=== PATIENT | female | born 2000 | race Caucasian/White ===

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

== ENCOUNTER 2018-04-15 22:27 | Emergency (ER) | payer OTHER | END 2018-04-16 01:29 | disposition home or self-care (01) | LOC: FTE 22:27 | DX: J06.9 Acute upper respiratory infection, unspecified (principal); J45.909 Unspecified asthma, uncomplicated; R40.2412 Glasgow coma scale score 13-15, at arrival to emergency department | CPT/HCPCS: 99283; Z7502 ==

== ENCOUNTER 2018-09-14 23:18 | Emergency (ER) | payer OTHER ==
[2018-09-15] MEDS: KETOROLAC 30 MG INJ IM (02:48)
[2018-09-15 03:12] LABS: ADD UMIC YES; UR ASCORBIC ACID NEGATIVE (NEGATIVE); UR BACTERIA FEW /HPF (NONE SEEN); UR BILIRUBIN (Dip) NEGATIVE (NEGATIVE); UR BLOOD (Dip) NEGATIVE (NEGATIVE); UR CLARITY SLIGHTLY CLOUDY (CLEAR); UR COLOR YELLOW (YELLOW); UR GLUCOSE (Dip) NEGATIVE (NEGATIVE); UR KETONES (Dip) NEGATIVE (NEGATIVE); UR LEUKOCYTE ESTERASE (Dip) 1+ Leu/ul (NEGATIVE); UR MUCUS FEW /HPF (NONE SEEN); UR NITRITE (Dip) NEGATIVE (NEGATIVE); UR RBC 2 /HPF (0-5); UR SPECIFIC GRAVITY (Dip) 1.031 (1.003-1.030); UR SQUAMOUS EPITHELIAL CELL FEW /HPF (FEW); UR TOTAL PROTEIN (Dip) NEGATIVE (NEGATIVE); UR UROBILINOGEN (Dip) NEGATIVE (NEGATIVE); UR WBC 23 /HPF (0-5)
== END 2018-09-15 04:54 | disposition home or self-care (01) ==
LOC: FTE 23:18
DX: S30.0XXA Contusion of lower back and pelvis, initial encounter (principal); N39.0 Urinary tract infection, site not specified; V00.121A Fall from non-in-line roller-skates, initial encounter
CPT/HCPCS: 72220; 81001; 81025; 96372; 99284-25

== ENCOUNTER → 2019-01-12 | Emergency (ER) | payer OTHER ==
[2019-01-12] MEDS: KETOROLAC 30 MG INJ IM (16:07)
== END | disposition home or self-care (01) ==
LOC: FTE 14:33
DX: M79.675 Pain in left toe(s) (principal)
CPT/HCPCS: 73630; 73630-LT; 81025; 96372; 99284-25